=== PATIENT | female | born 1955 | race Caucasian/White ===

== ENCOUNTER 2016-10-18 11:19 | Outpatient (CLI) | payer MEDICARE, MEDICAID | END 2016-10-18 11:20 | disposition home or self-care (01) | DX: R07.89 Other chest pain (principal); I10 Essential (primary) hypertension ==

== ENCOUNTER 2016-10-18 14:17 | Outpatient (CLI) | payer MEDICARE, MEDICAID | END 2016-10-18 14:18 | disposition home or self-care (01) | DX: R07.89 Other chest pain (principal); I10 Essential (primary) hypertension; E11.9 Type 2 diabetes mellitus without complications ==

== ENCOUNTER 2017-05-16 09:54 | Outpatient (CLI) | payer MEDICARE, MEDICAID ==
--- NOTE | 2017-05-16 13:13 | XRAY Report ---
TWO-VIEW CHEST: 05/16/2017 CLINICAL INDICATION: Dyspnea on exertion. COMPARISON: 04/16/2012 FINDINGS: Frontal and lateral views of the chest demonstrate a normal cardiac silhouette. The lungs are clear. No effusion or pneumothorax is present. IMPRESSION: NORMAL CHEST, UNCHANGED. :9 JOB #: [id number] EXT JOB #:[id number]
== END 2017-05-16 09:55 | disposition home or self-care (01) ==
LOC: DI.S 09:54
PROVIDERS: ATTEND Nurse Practitioner Family
DX: R07.89 Other chest pain (principal); R06.00 Dyspnea, unspecified
CPT/HCPCS: 71020; 93005

== ENCOUNTER 2017-12-04 09:35 | Outpatient (CLI) | payer MEDICARE, MEDICAID ==
[2017-12-04 18:04] LABS: BUN - BLOOD UREA NITROGEN 15 mg/dL (6-20); CALCIUM 9.1 mg/dL (8.5-10.3); CARBON DIOXIDE - CO2 26 mmol/L (21-32); CHLORIDE 104 mmol/L (101-111); CREATININE 0.7 mg/dL (0.4-1.0); GFR - MDRD 85 (>89); GLUCOSE 100 mg/dL (70-100); SODIUM 137 mmol/L (135-145)
[2017-12-04 18:13] LABS: HGB - HEMOGLOBIN 13.2 g/dL (12.0-16.0); MEAN CORPUSCULAR HEMOGLOBIN 29.8 pg (27.0-31.0); MEAN CORPUSCULAR HGB CONC 33.1 g/dL (32.0-36.0); MEAN CORPUSCULAR VOLUME 90.1 fL (81.0-99.0); MEAN PLATELET VOLUME 8.3 fL (7.9-10.8); RED BLOOD COUNT 4.43 10^6/uL (4.20-5.40); RED CELL DISTRIBUTION WIDTH 13.5 % (12.0-15.0); WHITE BLOOD COUNT 10.1 x10^3/uL (4.8-10.8)
[2017-12-04 18:45] LABS: HB2 TOTAL 14.8 g/dL; HEMOGLOBIN A1C 0.74 g/dL; HEMOGLOBIN A1C % 6.7 % (4.6-6.2)
== END 2017-12-04 09:36 | disposition home or self-care (01) ==
LOC: LAB.F 09:35
PROVIDERS: ATTEND Nurse Practitioner Family
DX: R07.89 Other chest pain (principal); E11.9 Type 2 diabetes mellitus without complications; R06.09 Other forms of dyspnea; I34.0 Nonrheumatic mitral (valve) insufficiency
CPT/HCPCS: 36415; 80048; 82043; 83036; 83880; 84443

== ENCOUNTER 2018-10-19 08:17 | Outpatient (CLI) | payer MEDICARE, MEDICAID ==
[2018-10-19 10:47] LABS: BASOPHILS # (AUTO) 0.1 10^3/uL (0.0-0.1); BASOPHILS % (AUTO) 1.4 %; EOSINOPHILS # (AUTO) 0.3 10^3/uL (0.0-0.7); EOSINOPHILS % (AUTO) 3.9 %; HGB - HEMOGLOBIN 12.5 g/dL (12.0-16.0); LYMPHOCYTES # (AUTO) 2.9 10^3/uL (1.5-3.5); LYMPHOCYTES % (AUTO) 39.7 %; MEAN CORPUSCULAR HEMOGLOBIN 29.8 pg (27.0-31.0); MEAN CORPUSCULAR HGB CONC 33.2 g/dL (32.0-36.0); MEAN CORPUSCULAR VOLUME 89.8 fL (81.0-99.0); MEAN PLATELET VOLUME 8.1 fL (7.9-10.8); MONOCYTES # (AUTO) 0.5 10^3/uL (0.0-1.0); MONOCYTES % (AUTO) 6.3 %; NEUTROPHILS # (AUTO) 3.6 10^3/uL (1.5-6.6); NEUTROPHILS % (AUTO) 48.7 %; PLT - PLATELET COUNT 325 10^3/uL (130-450); RED BLOOD COUNT 4.19 10^6/uL (4.20-5.40); RED CELL DISTRIBUTION WIDTH 13.6 % (12.0-15.0); WHITE BLOOD COUNT 7.3 x10^3/uL (4.8-10.8)
[2018-10-19 10:53] LABS: HB2 TOTAL 13.9 g/dL; HEMOGLOBIN A1C 0.73 g/dL
[2018-10-19 10:54] LABS: ALBUMIN 3.9 g/dL (3.2-5.5); ALBUMIN/GLOBULIN RATIO 1.3 (1.0-2.2); ALKALINE PHOSPHATASE 80 IU/L (42-121); ALT ALANINE AMINOTRANSFERASE 24 IU/L (10-60); AST ASPARTATE AMINOTRANSFERASE 23 IU/L (10-42); BILIRUBIN,TOTAL 0.9 mg/dL (0.2-1.0); BUN - BLOOD UREA NITROGEN 20 mg/dL (6-20); CALCIUM 9.2 mg/dL (8.5-10.3); CARBON DIOXIDE - CO2 25 mmol/L (21-32); CHLORIDE 99 mmol/L (101-111); CHOL/HDL RATIO 3.8 (<4.4); CHOLESTEROL 195 mg/dL; CREATININE 0.8 mg/dL (0.4-1.0); GFR - MDRD 72 (>89); GLUCOSE 135 mg/dL (70-100); HDL CHOLESTEROL 51 mg/dL; LDL CHOLESTEROL,CALCULATED 100 mg/dL; SODIUM 135 mmol/L (135-145); TOTAL PROTEIN 6.9 g/dL (6.7-8.2); VLDL CHOLESTEROL 44 mg/dL
== END 2018-10-19 08:18 | disposition home or self-care (01) ==
LOC: LAB.F 08:17
PROVIDERS: ATTEND Registered Nurse
DX: Z00.00 Encounter for general adult medical examination without abnormal findings (principal); R35.8 Other polyuria
CPT/HCPCS: 36415; 80053; 80061; 83036; 83721; 84443; 85025

== ENCOUNTER 2018-11-02 12:27 | Outpatient (CLI) | payer MEDICARE, MEDICAID ==
--- NOTE | 2018-11-02 18:15 | Mammography Report ---
Reason: MAMMOGRAPHIC SCREENING FOR BREAST CANCER Procedure Date: 11/02/2018 Accession Number: [id number] / [id number] Procedure: CARLI - Screening Mammo w/David CPT Code: FULL RESULT: EXAM: Screening Mammo w/David DATE: 11/02/2018 12:53 PM CLINICAL HISTORY: Screening encounter. History of early menses. History of 10 years of hormone therapy. TECHNIQUE: Bilateral CC, laterally exaggerated CC, MLO views were obtained. COMPARISON: 04/19/2013. FINDINGS: The breasts demonstrate scattered fibroglandular densities bilaterally. No suspicious masses, clustered microcalcifications, or regions of architectural distortion are identified. IMPRESSION: Negative examination RECOMMENDATION: Routine annual screening unless otherwise clinically indicated. BIRADS CATEGORY 1: Negative STANDARD QUALIFYING STATEMENTS: 1. This examination was not reviewed with the aid of Computer-Aided Detection (CAD). 2. A negative or benign imaging report should not delay biopsy if clinically suspicious findings are present. Consider surgical consultation if warrented. More than 5% of cancers are not identified by imaging. 3. Dense breasts may obscure an underlying neoplasm. 4. This examination was reviewed with the aid of 3D breast imaging (tomosynthesis).
== END 2018-11-02 12:28 | disposition home or self-care (01) ==
LOC: DI 12:27
PROVIDERS: ATTEND Nurse Practitioner Family
DX: Z12.31 Encounter for screening mammogram for malignant neoplasm of breast (principal)
CPT/HCPCS: 77063; 77067

== ENCOUNTER 2018-11-16 09:52 | Outpatient (CLI) | payer MEDICARE, MEDICAID ==
--- NOTE | 2018-11-16 10:49 | XRAY Report ---
Reason: POST HEEL PAIN L X 6YEARS Procedure Date: 11/16/2018 Accession Number: [id number] / [id number] Procedure: XR - Calcaneus LT CPT Code: FULL RESULT: EXAM: LEFT CALCANEOUS RADIOGRAPHY EXAM DATE: 11/16/2018 10:07 AM. CLINICAL HISTORY: POST HEEL PAIN L X 6YEARS. COMPARISON: None. TECHNIQUE: 2 views. FINDINGS: Bones: No fractures or bone lesion identified. Mild inferior calcaneal spurring. Joints: The visualized joints demonstrate no subluxation. Soft Tissues: Normal. No soft tissue swelling. IMPRESSION: Mild inferior calcaneal spurring. RADIA
== END 2018-11-16 09:53 | disposition home or self-care (01) ==
LOC: DI 09:52
PROVIDERS: ATTEND Podiatrist
DX: M77.32 Calcaneal spur, left foot (principal)

== ENCOUNTER 2019-09-23 10:09 | Emergency (ER) | payer MEDICARE, MEDICAID ==
--- NOTE | 2019-09-23 12:16 | ED Physician Documentation ---
PD HPI OPHTHO - Stated complaint Stated Complaint: L EYE INJURY - Chief complaint Chief Complaint: Heent - History obtained from History obtained from: Patient - History of Present Illness Timing - onset: Enter time (1800), Last night Timing - duration: Minutes Timing - details: Abrupt onset, Now resolved, Waxing and waning Location: Left Quality / character: Other (no pain) Associated symptoms: Other (spots and flashes) Contributing factors: Wears glasses Similar symptoms before: Diagnosis (optic neuritis.) Recently seen: Not recently seen - Additional information Additional information: 64-year-old female with a history of hypertension and borderline diabetes has developed someBlack spots coming toward her face last night at about 6 PM. She noted that after that she had some bright white light in the peripheral of her vision. She states the light was flashes of bright white. She has not had any decrease in her vision she has not had any absence of vision. She has had something similar happened 20 years ago when she had loss of vision in her left eye for 6 hours. This was diagnosed as optic neuritis. She has not had symptoms since and she does usually see her eye doctor for refraction only. Review of Systems Constitutional: denies: Fever, Chills Eyes: reports: Other (black and light flashes). denies: Loss of vision, Decreased vision, Photophobia, Discharge, Irritation Ears: denies: Ear pain Nose: denies: Congestion Throat: denies: Sore throat Respiratory: denies: Cough GI: denies: Vomiting PD PAST MEDICAL HISTORY - Past Medical History Cardiovascular: Valve disorder Respiratory: Other Neuro: Peripheral neuropathy Endocrine/Autoimmune: Type 2 diabetes Musculoskeletal: Chronic back pain, Other - Past Surgical History Past Surgical History: Yes General: Cholecystectomy Ortho: Spine surgery /[facility] INSTITUTION: Hysterectomy - Present Medications Home Medications: Ambulatory Orders Medication Instructions Recorded Confirmed Omeprazole [PriLOSEC] 1 tab PO DAILY 05/21/16 10/29/18 estradioL [Estradiol] 2 tab PO DAILY 05/21/16 10/29/18 Cyanocobalamin (Vitamin B-12) 1,000 mcg PO DAILY 10/29/18 10/29/18 [Vitamin B-12] Tizanidine HCl 4 mg PO QPM 10/29/18 10/29/18 lisinopriL [Lisinopril] 2.5 mg PO DAILY 10/29/18 10/29/18 - Allergies Allergies/Adverse Reactions: Allergies Allergy/AdvReac Type Severity Reaction Status Date / Time tetanus and diphtheria Allergy Unknown Verified 09/23/19 10:17 toxoids nortriptyline AdvReac Severe suicidal Verified 09/23/19 10:17 pramipexole [From Mirapex] AdvReac Severe Nausea Verified 09/23/19 10:17 pregabalin [From Lyrica] AdvReac Severe Dizziness Verified 09/23/19 10:17 diltiazem AdvReac Intermediate insomina Verified 09/23/19 10:17 propranolol AdvReac Intermediate insomnia Verified 09/23/19 10:17 - Social History Does the pt smoke?: No Smoking Status: Former smoker Does the pt drink ETOH?: No Does the pt have substance abuse?: No - Immunizations Immunizations are current?: No Immunizations: TDAP >10years/unknown PD ED PE NORMAL - Vitals Vital signs reviewed: Yes (hypertensive mild ) - General General: Alert and oriented X 3, No acute distress, Well developed/nourished - HEENT HEENT: Atraumatic, PERRL, EOMI, Other (The fundiscopic exam is unremarkable. There is no scleral injection, no hyphema, no irregularity to iris and normal constriction. with the bedside ultrasound there is no evidence of retinal detachment. ) - Neck Neck: Supple, no meningeal sign, No bony TTP - Respiratory Respiratory: No respiratory distress - Extremities Extremities: No deformity, No edema, No calf tenderness / cord - Neuro Neuro: Alert and oriented X 3, [employer] 2-12 intact, No motor deficit, No sensory deficit, Normal speech Eye Opening: Spontaneous Motor: Obeys Commands Verbal: Oriented GCS Score: 15 - Psych Psych: Normal mood, Normal affect Results - Vitals Vitals: Vital Signs - 24 hr 09/23/19 09/23/19 10:13 12:41 Temperature 36 C L 36.6 C Heart Rate 92 82 Respiratory 18 17 Rate Blood Pressure 146/76 H 159/80 H O2 Saturation 96 97 Oxygen O2 Source Room air PD MEDICAL DECISION MAKING - ED course Complexity details: considered differential, d/w patient ED course: 64-year-old female with resolved symptoms of dark and white flashes in her vision does not appear to have evidence of retinal detachment and she does not have vision loss today. I have consulted Dr. Canas and he has graciously agreed to see the patient in clinic tomorrow. Departure - Departure Disposition: 01 Home, Self Care Clinical Impression: Vision abnormalities Condition: Stable Instructions: Flashes and Floaters Follow-Up: Goldie De La Fuente ARNP [Primary Care Provider] - Jero Canas MD [Provider Admit Priv/Credential] - Comments: Call Dr. Canas's office today and asked for an appointment to be seen tomorrow. Let them know you are a follow-up from the emergency department and the emergency department physician has talked to Dr. Canas about this case. Discharge Date/Time: 09/23/19 12:50
[2019-09-23 12:41] VITALS: BP 159/80
== END 2019-09-23 12:50 | disposition home or self-care (01) ==
LOC: ED 10:09
DX: H53.8 Other visual disturbances (principal); I10 Essential (primary) hypertension; E11.42 Type 2 diabetes mellitus with diabetic polyneuropathy; Z87.891 Personal history of nicotine dependence
CPT/HCPCS: 99282

== ENCOUNTER 2019-10-13 08:43 | Outpatient (CLI) | payer MEDICARE, MEDICAID ==
[2019-10-13 17:21] LABS: BASOPHILS # (AUTO) 0.1 10^3/uL (0.0-0.1); BASOPHILS % (AUTO) 0.8 %; EOSINOPHILS # (AUTO) 0.2 10^3/uL (0.0-0.7); EOSINOPHILS % (AUTO) 2.4 %; HGB - HEMOGLOBIN 13.5 g/dL (12.0-16.0); LYMPHOCYTES # (AUTO) 3.5 10^3/uL (1.5-3.5); LYMPHOCYTES % (AUTO) 44.4 %; MEAN CORPUSCULAR HEMOGLOBIN 29.6 pg (27.0-31.0); MEAN CORPUSCULAR HGB CONC 31.5 g/dL (32.0-36.0); MEAN CORPUSCULAR VOLUME 94.1 fL (81.0-99.0); MEAN PLATELET VOLUME 10.2 fL (7.9-10.8); MONOCYTES # (AUTO) 0.4 10^3/uL (0.0-1.0); MONOCYTES % (AUTO) 5.5 %; NEUTROPHILS # (AUTO) 3.7 10^3/uL (1.5-6.6); NEUTROPHILS % (AUTO) 46.8 %; PLT - PLATELET COUNT 356 10^3/uL (130-450); RED BLOOD COUNT 4.56 10^6/uL (4.20-5.40); RED CELL DISTRIBUTION WIDTH 13.2 % (12.0-15.0); WHITE BLOOD COUNT 7.9 x10^3/uL (4.8-10.8)
[2019-10-13 17:41] LABS: ALBUMIN 4.4 g/dL (3.2-5.5); ALBUMIN/GLOBULIN RATIO 1.5 (1.0-2.2); ALKALINE PHOSPHATASE 82 IU/L (42-121); ALT ALANINE AMINOTRANSFERASE 83 IU/L (10-60); AST ASPARTATE AMINOTRANSFERASE 53 IU/L (10-42); BILIRUBIN,TOTAL 0.8 mg/dL (0.2-1.0); BUN - BLOOD UREA NITROGEN 29 mg/dL (6-20); CALCIUM 9.5 mg/dL (8.5-10.3); CARBON DIOXIDE - CO2 26 mmol/L (21-32); CHLORIDE 101 mmol/L (101-111); CHOL/HDL RATIO 5.8 (<4.4); CHOLESTEROL 253 mg/dL; CREATININE 0.7 mg/dL (0.4-1.0); GFR - MDRD 84 (>89); GLUCOSE 138 mg/dL (70-100); HDL CHOLESTEROL 44 mg/dL; LDL CHOLESTEROL,CALCULATED 146 mg/dL; LDL/HDL RATIO 3.3 (<4.4); SODIUM 137 mmol/L (135-145); TOTAL PROTEIN 7.4 g/dL (6.7-8.2); VLDL CHOLESTEROL 63 mg/dL
[2019-10-13 18:13] LABS: HB2 TOTAL 13.8 g/dL; HEMOGLOBIN A1C 0.88 g/dL
== END 2019-10-13 08:44 | disposition home or self-care (01) ==
LOC: LAB.S 08:43
PROVIDERS: ATTEND Registered Nurse
DX: I10 Essential (primary) hypertension (principal); R73.9 Hyperglycemia, unspecified; F17.201 Nicotine dependence, unspecified, in remission; E66.9 Obesity, unspecified; Z68.34 Body mass index [BMI] 34.0-34.9, adult; K76.0 Fatty (change of) liver, not elsewhere classified
CPT/HCPCS: 36415; 80053; 80061; 83036; 83721; 84443; 85025

== ENCOUNTER 2020-02-08 09:56 | Outpatient (CLI) | payer MEDICARE, MEDICAID ==
[2020-02-08 15:40] LABS: CALCIUM 9.3 mg/dL (8.5-10.3); CREATININE 0.8 mg/dL (0.4-1.0)
[2020-02-08 15:57] LABS: CREATININE,URINE 73.6 mg/dL
[2020-02-08 16:00] LABS: MICROALBUMIN,URINE < 0.2 mg/dL (0-300.0)
[2020-02-08 16:10] LABS: HB2 TOTAL 13.4 g/dL; HEMOGLOBIN A1C 0.75 g/dL; HEMOGLOBIN A1C % 7.3 % (4.6-6.2)
== END 2020-02-08 09:57 | disposition home or self-care (01) ==
LOC: LAB.S 09:56
PROVIDERS: ATTEND Registered Nurse
DX: E11.65 Type 2 diabetes mellitus with hyperglycemia (principal)
CPT/HCPCS: 36415; 80048; 82043; 82570; 83036

== ENCOUNTER 2020-11-27 08:27 | Outpatient (CLI) | payer MEDICARE, MEDICAID ==
[2020-11-27 14:12] LABS: BASOPHILS # (AUTO) 0.1 10^3/uL (0.0-0.1); BASOPHILS % (AUTO) 0.9 %; EOSINOPHILS # (AUTO) 0.2 10^3/uL (0.0-0.7); EOSINOPHILS % (AUTO) 1.9 %; HCT - HEMATOCRIT 38.3 % (37.0-47.0); HGB - HEMOGLOBIN 11.9 g/dL (12.0-16.0); LYMPHOCYTES # (AUTO) 3.3 10^3/uL (1.5-3.5); LYMPHOCYTES % (AUTO) 40.6 %; MEAN CORPUSCULAR HEMOGLOBIN 29.6 pg (27.0-31.0); MEAN CORPUSCULAR HGB CONC 31.1 g/dL (32.0-36.0); MEAN CORPUSCULAR VOLUME 95.3 fL (81.0-99.0); MEAN PLATELET VOLUME 9.7 fL (7.9-10.8); MONOCYTES # (AUTO) 0.5 10^3/uL (0.0-1.0); MONOCYTES % (AUTO) 5.9 %; NEUTROPHILS # (AUTO) 4.1 10^3/uL (1.5-6.6); NEUTROPHILS % (AUTO) 50.5 %; PLT - PLATELET COUNT 400 10^3/uL (130-450); RED BLOOD COUNT 4.02 10^6/uL (4.20-5.40); RED CELL DISTRIBUTION WIDTH 13.7 % (12.0-15.0); WHITE BLOOD COUNT 8.1 x10^3/uL (4.8-10.8)
[2020-11-27 14:34] LABS: ALBUMIN 4.2 g/dL (3.2-5.5); ALBUMIN/GLOBULIN RATIO 1.4 (1.0-2.2); ALKALINE PHOSPHATASE 76 IU/L (42-121); ALT ALANINE AMINOTRANSFERASE 20 IU/L (10-60); AST ASPARTATE AMINOTRANSFERASE 17 IU/L (10-42); BILIRUBIN,TOTAL 0.9 mg/dL (0.2-1.0); BUN - BLOOD UREA NITROGEN 23 mg/dL (6-20); CALCIUM 9.4 mg/dL (8.5-10.3); CARBON DIOXIDE - CO2 25 mmol/L (21-32); CHLORIDE 105 mmol/L (101-111); CHOL/HDL RATIO 3.9 (<4.4); CHOLESTEROL 191 mg/dL; CREATININE 0.7 mg/dL (0.4-1.0); GFR - MDRD 84 (>89); GLUCOSE 122 mg/dL (70-100); HDL CHOLESTEROL 49 mg/dL; LDL CHOLESTEROL,CALCULATED 102 mg/dL; LDL/HDL RATIO 2.1 (<4.4); POTASSIUM 5.1 mmol/L (3.5-5.0); SODIUM 139 mmol/L (135-145); TOTAL PROTEIN 7.1 g/dL (6.7-8.2); TRIGLYCERIDES 201 mg/dL; VLDL CHOLESTEROL 40 mg/dL
[2020-11-27 14:40] LABS: THYROID STIMULATING HORMONE 1.19 uIU/mL (0.34-5.60)
[2020-11-27 20:30] LABS: ESTIMATED AVERAGE GLUCOSE 154 mg/dL (70-100)
== END 2020-11-27 08:28 | disposition home or self-care (01) ==
LOC: LAB.S 08:27
PROVIDERS: ATTEND Registered Nurse
DX: E11.9 Type 2 diabetes mellitus without complications (principal); I10 Essential (primary) hypertension; E78.5 Hyperlipidemia, unspecified
CPT/HCPCS: 36415; 80053; 80061; 83036; 83721; 84443; 85025

== ENCOUNTER 2021-01-22 15:00 | Outpatient (CLI) | payer MEDICARE, MEDICAID | END 2021-01-22 23:59 | disposition home or self-care (01) | LOC: COV 15:00 | PROVIDERS: ATTEND Ophthalmology | DX: Z01.812 Encounter for preprocedural laboratory examination (principal); H25.812 Combined forms of age-related cataract, left eye; E11.9 Type 2 diabetes mellitus without complications; Z20.822 Contact with and (suspected) exposure to COVID-19 ==

== ENCOUNTER 2021-01-25 06:25 | Day surgery (SDC) | payer MEDICARE, MEDICAID ==
[~2021-01-25 06:25] MED LIST: CYCLOPENTOLATE 1% OPHTH DROPS 2 ML ONE; KETOROLAC 0.45% OPHTH DROPS ONE; PHENYLEPHRINE 2.5% OPHTH 2 ML DROPS ONE; PROPARACAINE 0.5% OPHTH DROPS 15 ML ONE
[2021-01-25] MEDS ORDERED: LACTATED RINGERS 500 ML IV ONE ×2 (06:45→07:40)
[2021-01-25] MEDS ORDERED: TRIAMCIN/MOXIFLOX OPHTHALMIC 0.6 ML VIAL IO ONE ×3 (07:11→07:34)
[2021-01-25] MEDS ORDERED: TIMOLOL 0.5% OPHTH DROPS ONE (07:11)
[2021-01-25] MEDS ORDERED: MIDAZOLAM 2 MG/2 ML VIAL ONE (07:11)
[2021-01-25] MEDS ORDERED: BRIMONIDINE 0.2% OPHTH DROPS 5 ML ONE (07:11)
[2021-01-25] MEDS ORDERED: EPINEPHrine 1 MG/ML AMP ONE (07:11)
[2021-01-25] MEDS ORDERED: BSS/LIDOCAINE/EPINEPHRINE 1 ML SYRINGE ONE (07:12)
[2021-01-25] MEDS ORDERED: VANCOMYCIN OPHTHALMI 8MG/0.8ML 8 MG/0.8 ML SYRINGE IO ONE ×3 (07:12→07:34)
--- NOTE | 2021-01-25 07:14 | ANESTHESIA ---
Pre-Anesthesia VS, & Labs - Diagnosis left eye cataract - Procedure Left CATIOL Vital Signs: Temp Pulse Resp BP Pulse Ox 36.5 C 78 16 155/78 H 98 01/25/21 06:48 01/25/21 06:48 01/25/21 06:48 01/25/21 06:48 01/25/21 06:48 Height: 5 ft 2 in Weight (kg): 81.5 kg Body Mass Index: 32.8 BMI Classification: Obese - NPO >8 hours - Is Patient ?: No - Lab Results Current Lab Results: Laboratory Tests 01/25/21 06:56: POC Whole Bld Glucose 128 H Lab results reviewed: Yes Home Medications and Allergies Home Medications: Ambulatory Orders metFORMIN [Glucophage] 500 mg PO BIDWM 01/24/21 Omeprazole [PriLOSEC] 1 tab PO DAILY 05/21/16 estradioL [Estradiol] 2 tab PO DAILY 05/21/16 Tizanidine HCl 4 mg PO QPM 10/29/18 lisinopriL [Lisinopril] 2.5 mg PO DAILY 10/29/18 metFORMIN [Glucophage] 500 mg PO BIDWM 01/24/21 Allergies/Adverse Reactions: Allergies Allergy/AdvReac Type Severity Reaction Status Date / Time tetanus and diphtheria Allergy Unknown Verified 09/23/19 10:17 toxoids nortriptyline AdvReac Severe suicidal Verified 09/23/19 10:17 pramipexole [From Mirapex] AdvReac Severe Nausea Verified 09/23/19 10:17 pregabalin [From Lyrica] AdvReac Severe Dizziness Verified 09/23/19 10:17 diltiazem AdvReac Intermediate insomina Verified 09/23/19 10:17 propranolol AdvReac Intermediate insomnia Verified 09/23/19 10:17 Anes History & Medical History - Anesthetic History Anesthesia Complications: reports: No previous complications Family history of Anesthesia Complications: Denies Family history of Malignant Hyperthermia: Denies - Medical History Cardiovascular: reports: Valve disorder ("some type of regurgitation in 2 valves" per patient. Denies SOB or any chest pains. 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.) Pulmonary: reports: Other Gastrointestinal: reports: None Urinary: reports: None Neuro: reports: Peripheral neuropathy Musculoskeletal: reports: Chronic back pain, Other Endocrine/Autoimmune: reports: Type 2 diabetes Smoking Status: Former smoker - Surgical History General: reports: Cholecystectomy Gynecologic: reports: Hysterectomy Orthopedic: reports: Spine surgery Exam General: Alert, Oriented x3, Cooperative, No acute distress Dental: WNL Mouth Openin Fingerbreadth Neck Mobility: Normal Mallampati classification: II Respiratory: Lungs clear, Normal breath sounds, No respiratory distress, No accessory muscle use Cardiovascular: Other (murmur) Plan Anesthesia Type: MAC Consent for Procedure(s) Verified and Reviewed: Yes Code Status: Attempt Resuscitation ASA classification: 3-Severe systemic disease Is this case an emergency?: No
[2021-01-25] MEDS ORDERED: MORPHINE 2 MG/ML CARPUJECT IVP PRN (07:15)
[2021-01-25] MEDS ORDERED: ePHEDrine 50 MG/ML VIAL IVP PRN (07:15)
[2021-01-25] MEDS ORDERED: ONDANSETRON 4 MG/2 ML VIAL IVP PRN (07:15)
[2021-01-25] MEDS ORDERED: METOCLOPRAMIDE 10 MG/2 ML VIAL IVP PRN (07:15)
[2021-01-25] MEDS ORDERED: NALOXONE 0.4 MG/ML VIAL IVP PRN (07:15)
[2021-01-25] MEDS ORDERED: HYDROmorphone 0.5 MG/0.5 ML SYRINGE IVP PRN (07:15)
[2021-01-25] MEDS ORDERED: ATROPINE ABBOJECT 1 MG/10 ML SYRINGE IVP PRN (07:15)
[2021-01-25] MEDS ORDERED: fentaNYL 100 MCG/2 ML VIAL IVP PRN (07:15)
[2021-01-25] MEDS ORDERED: EPINEPHrine 1 MG/ML AMP IR ONE ×2 (07:20→07:33)
[2021-01-25] MEDS ORDERED: CHONDR SULF/HYALURONATE SYRINGE IO ONE ×2 (07:20→07:33)
[2021-01-25] MEDS ORDERED: TIMOLOL 0.5% OPHTH DROPS OPTH ONE ×2 (07:20→07:33)
[2021-01-25] MEDS ORDERED: BRIMONIDINE 0.2% OPHTH DROPS 5 ML OPTH ONE ×2 (07:20→07:32)
[2021-01-25] MEDS ORDERED: BSS/LIDOCAINE/EPINEPHRINE 1 ML SYRINGE IO ONE ×2 (07:21→07:34)
[2021-01-25] MEDS ORDERED: PROPARACAINE 0.5% OPHTH DROPS 15 ML EACHEYE ONE ×2 (07:21→07:34)
[2021-01-25 07:43] VITALS: BP 152/81
[2021-01-25] MEDS ORDERED: LACTATED RINGERS 1,000 ML IV SCH (08:00)
--- NOTE | 2021-01-25 08:04 | ANESTHESIA POST OP EVALUATION ---
Anesthesia Post Eval - Post Anesthesia Eval Vitals: Last Vital Signs Temp 36.8 C 01/25/21 07:42 Pulse 79 01/25/21 07:42 Resp 20 01/25/21 07:42 BP 152/81 H 01/25/21 07:42 Pulse Ox 98 01/25/21 07:42 CV Function Including HR & BP: Stable Pain Control: Satisfactory Nausea & Vomiting: Negative Mental Status: Baseline Respiratory Status: Airway Patent Hydration Status: Satisfactory Anesthesia Complications: None
--- NOTE | 2021-01-25 12:03 | OPERATIVE REPORT ---
Operative Report - Other Other Information/Narrative: Date of Surgery: 01/25/21 Preop Dx: Visually significant cataract left eye. This was the first cataract surgery. Postop Dx: Same Procedure: Phacoemulsification with posterior chamber intraocular lens implant left eye Surgeon: Dr. Jero Canas Anesthesia: Monitored anesthesia care Complications: None Operative Indications: This is a 65-year-old F with progressive vision loss in the left eye due to 2+ nuclear sclerotic and 2-3+ posterior subcapsular cataract. Best corrected visual acuity was 20/40 with glare to 20/400 vision in the left eye. Indications for surgery were: - Overall decrease in vision - Difficulty seeing words on a computer screen - Difficulty reading - Difficulty seeing words, closed captions, or game scores on TV - Difficulty driving at night because of headlights from other vehicles - Difficulty with glare or bright lights in any situation The patient was consented at length concerning the risks and benefits of cataract surgery after which the patient expressed a desire to proceed with surgery. Operative Procedure: The patient was taken into OR#3 and placed under monitored anesthesia care. A surgical time-out was conducted confirming correct patient, correct procedure, and correct surgical site. The patient was given topical anesthesia and then prepped and draped in the usual sterile fashion. The eye was entered at the 6 and 3 oclock positions. Intracameral Shugarcaine was injected into the anterior chamber followed by a dispersive viscoelastic. A continuous-tear curvilinear capsulorhexis was performed. The nucleus was hydrodissected and phacoemulsified. The cortex was evacuated using automated infusion and aspiration. A cohesive viscoelastic was injected into the capsular bag and a 22.0 diopter intraocular lens was inserted into the bag. Infusion and aspiration were used to evacuate the viscoelastic materials from the eye. The wounds were hydrated and the eye inflated to physiologic pressure using balanced salt solution. Approximately 0.25ml of a mixture of triamcinolone and moxifloxacin was injected trans-sclerally into the vitreous in the inferotemporal quadrant using a 30 gauge cannula. An additional 0.55ml of a mixture of triamcinolone, moxifloxacin, and vancomycin was injected subconjunctivally in the superior quadrant for infection and inflammation prophylaxis. Wound integrity was checked with Weck-Aleida sponges. The patient was taken from the operating room in good condition and given post-op instructions.
== END 2021-01-25 06:26 | disposition home or self-care (01) ==
LOC: SDS 06:25
PROVIDERS: ATTEND Ophthalmology
DX: E11.36 Type 2 diabetes mellitus with diabetic cataract (principal); H25.812 Combined forms of age-related cataract, left eye; I10 Essential (primary) hypertension; E11.42 Type 2 diabetes mellitus with diabetic polyneuropathy; I38 Endocarditis, valve unspecified; E66.9 Obesity, unspecified; Z68.32 Body mass index [BMI] 32.0-32.9, adult; Z79.84 Long term (current) use of oral hypoglycemic drugs; Z79.899 Other long term (current) drug therapy; Z87.891 Personal history of nicotine dependence
CPT/HCPCS: 66984; A9270; J3490; J7120

== ENCOUNTER 2021-04-20 08:00 | Outpatient (CLI) | payer MEDICARE, MEDICAID ==
[2021-04-20 14:52] LABS: BASOPHILS # (AUTO) 0.1 10^3/uL (0.0-0.1); BASOPHILS % (AUTO) 0.8 %; EOSINOPHILS # (AUTO) 0.2 10^3/uL (0.0-0.7); EOSINOPHILS % (AUTO) 1.8 %; HCT - HEMATOCRIT 39.3 % (37.0-47.0); HGB - HEMOGLOBIN 12.7 g/dL (12.0-16.0); LYMPHOCYTES # (AUTO) 3.6 10^3/uL (1.5-3.5); LYMPHOCYTES % (AUTO) 39.4 %; MEAN CORPUSCULAR HEMOGLOBIN 30.5 pg (27.0-31.0); MEAN CORPUSCULAR HGB CONC 32.3 g/dL (32.0-36.0); MEAN CORPUSCULAR VOLUME 94.2 fL (81.0-99.0); MEAN PLATELET VOLUME 9.7 fL (7.9-10.8); MONOCYTES # (AUTO) 0.5 10^3/uL (0.0-1.0); NEUTROPHILS # (AUTO) 4.9 10^3/uL (1.5-6.6); NEUTROPHILS % (AUTO) 52.8 %; PLT - PLATELET COUNT 421 10^3/uL (130-450); RED BLOOD COUNT 4.17 10^6/uL (4.20-5.40); RED CELL DISTRIBUTION WIDTH 13.5 % (12.0-15.0); WHITE BLOOD COUNT 9.2 x10^3/uL (4.8-10.8)
[2021-04-20 15:41] LABS: ALBUMIN 4.3 g/dL (3.2-5.5); ALBUMIN/GLOBULIN RATIO 1.5 (1.0-2.2); BILIRUBIN,TOTAL 1.1 mg/dL (0.2-1.0); CALCIUM 9.3 mg/dL (8.5-10.3); CREATININE 0.7 mg/dL (0.4-1.0); POTASSIUM 4.1 mmol/L (3.5-5.0); TOTAL PROTEIN 7.2 g/dL (6.7-8.2)
[2021-04-20 20:48] LABS: BACTERIAL VAGINOSIS DNA NEGATIVE (NEGATIVE); CANDIDA GLABRATA DNA NEGATIVE (NEGATIVE); CANDIDA GROUP DNA NEGATIVE (NEGATIVE); CANDIDA KRUSEI DNA NEGATIVE (NEGATIVE); TRICHOMONAS VAGINALIS DNA NEGATIVE (NEGATIVE)
== END 2021-04-20 23:59 | disposition home or self-care (01) ==
LOC: LAB.S 08:00
PROVIDERS: ATTEND Nurse Practitioner
DX: B37.3 Candidiasis of vulva and vagina (principal)
CPT/HCPCS: 36415; 80053; 85025; 87661; 87801

== ENCOUNTER 2021-05-24 08:29 | Outpatient (CLI) | payer MEDICARE, MEDICAID ==
[2021-05-24 15:01] LABS: CALCIUM 9.7 mg/dL (8.5-10.3); CREATININE 0.7 mg/dL (0.4-1.0); POTASSIUM 4.6 mmol/L (3.5-5.0)
[2021-05-24 15:21] LABS: CREATININE,URINE 41.2 mg/dL
[2021-05-24 15:48] LABS: MICROALBUMIN,URINE < 0.2 mg/dL (0-300.0)
[2021-05-24 21:20] LABS: ESTIMATED AVERAGE GLUCOSE 166 mg/dL (70-100); HEMOGLOBIN A1c% 7.4 % (4.27-6.07)
== END 2021-05-24 08:30 | disposition home or self-care (01) ==
LOC: LAB.S 08:29
PROVIDERS: ATTEND Registered Nurse
DX: E11.9 Type 2 diabetes mellitus without complications (principal)
CPT/HCPCS: 36415; 80048; 82043; 82570; 83036

== ENCOUNTER 2022-06-28 08:35 | Outpatient (CLI) | payer MEDICARE, MEDICAID ==
[2022-06-28 14:56] LABS: BASOPHILS % (AUTO) 0.8 %; EOSINOPHILS % (AUTO) 2.1 %; HCT - HEMATOCRIT 39.3 % (37.0-47.0); HGB - HEMOGLOBIN 12.4 g/dL (12.0-16.0); LYMPHOCYTES % (AUTO) 47.6 %; MEAN CORPUSCULAR HEMOGLOBIN 29.7 pg (27.0-31.0); MEAN CORPUSCULAR HGB CONC 31.6 g/dL (32.0-36.0); MEAN CORPUSCULAR VOLUME 94.2 fL (81.0-99.0); MEAN PLATELET VOLUME 9.5 fL (7.9-10.8); MONOCYTES % (AUTO) 5.5 %; NEUTROPHILS % (AUTO) 43.9 %; PLT - PLATELET COUNT 410 10^3/uL (130-450); RED BLOOD COUNT 4.17 10^6/uL (4.20-5.40); RED CELL DISTRIBUTION WIDTH 13.4 % (12.0-15.0)
[2022-06-28 14:59] LABS: ABNORMAL LYMPHS % (MANUAL) 0 %
[2022-06-28 15:25] LABS: BAND NEUTROPHILS % (MANUAL) 1 %; BASOPHILS # (MANUAL) 0.2 10^3/uL (0-0.1); BASOPHILS % (MANUAL) 2 %; DIFFERENTIAL COMMENT MANUAL DIFFERENTIAL; EOSINOPHILS # (MANUAL) 0.5 10^3/uL (0-0.7); LYMPHOCYTES # (MANUAL) 3.3 10^3/uL (1.5-3.5); LYMPHOCYTES % (MANUAL) 37 %; MONOCYTES # (MANUAL) 0.3 10^3/uL (0.0-1.0); NEUTROPHILS # (MANUAL) 4.7 10^3/uL (1.5-6.6); PLATELET ESTIMATE, MANUAL NORMAL (130-450,000) (NORMAL); PLATELET MORPHOLOGY NORMAL APPEARANCE (NORMAL); RBC MORPHOLOGY (MULTIPLE) NORMAL APPEARANCE (NORMAL); WBC MORPHOLOGY (MULTIPLE) 1+ SMUDGE CELLS (NORMAL)
[2022-06-28 15:39] LABS: ALBUMIN 4.4 g/dL (3.2-5.5); ALBUMIN/GLOBULIN RATIO 1.3 (1.0-2.2); ALKALINE PHOSPHATASE 87 IU/L (42-121); ALT ALANINE AMINOTRANSFERASE 17 IU/L (10-60); AST ASPARTATE AMINOTRANSFERASE 16 IU/L (10-42); BUN - BLOOD UREA NITROGEN 23 mg/dL (6-20); CALCIUM 9.5 mg/dL (8.5-10.3); CARBON DIOXIDE - CO2 24 mmol/L (21-32); CHLORIDE 100 mmol/L (101-111); CHOL/HDL RATIO 4.4 (<4.4); CHOLESTEROL 216 mg/dL; CREATININE 0.7 mg/dL (0.4-1.0); GFR - MDRD 84 (>89); GLUCOSE 111 mg/dL (70-100); HDL CHOLESTEROL 49 mg/dL; LDL CHOLESTEROL,CALCULATED 120 mg/dL; LDL/HDL RATIO 2.4 (<4.4); POTASSIUM 4.8 mmol/L (3.5-5.0); SODIUM 135 mmol/L (135-145); TOTAL PROTEIN 7.7 g/dL (6.7-8.2); TRIGLYCERIDES 237 mg/dL; VLDL CHOLESTEROL 47 mg/dL
[2022-06-28 15:42] LABS: THYROID STIMULATING HORMONE 1.11 uIU/mL (0.34-5.60)
[2022-06-28 20:16] LABS: ESTIMATED AVERAGE GLUCOSE 140 mg/dL (70-100); HEMOGLOBIN A1c% 6.5 % (4.27-6.07)
== END 2022-06-28 08:36 | disposition home or self-care (01) ==
LOC: LAB.S 08:35
PROVIDERS: ATTEND Registered Nurse
DX: I10 Essential (primary) hypertension (principal); E78.5 Hyperlipidemia, unspecified; E11.8 Type 2 diabetes mellitus with unspecified complications
CPT/HCPCS: 36415; 80053; 80061; 83036; 83721; 84443; 85025

== ENCOUNTER 2022-08-13 10:24 | Outpatient (CLI) | payer MEDICARE, MEDICAID ==
[2022-08-13 14:47] LABS: BASOPHILS # (AUTO) 0.1 10^3/uL (0.0-0.1); BASOPHILS % (AUTO) 0.9 %; EOSINOPHILS # (AUTO) 0.2 10^3/uL (0.0-0.7); HCT - HEMATOCRIT 39.2 % (37.0-47.0); HGB - HEMOGLOBIN 12.3 g/dL (12.0-16.0); LYMPHOCYTES # (AUTO) 4.6 10^3/uL (1.5-3.5); LYMPHOCYTES % (AUTO) 40.6 %; MEAN CORPUSCULAR HEMOGLOBIN 29.8 pg (27.0-31.0); MEAN CORPUSCULAR HGB CONC 31.4 g/dL (32.0-36.0); MEAN CORPUSCULAR VOLUME 94.9 fL (81.0-99.0); MEAN PLATELET VOLUME 9.7 fL (7.9-10.8); MONOCYTES # (AUTO) 0.5 10^3/uL (0.0-1.0); MONOCYTES % (AUTO) 4.7 %; NEUTROPHILS # (AUTO) 5.8 10^3/uL (1.5-6.6); NEUTROPHILS % (AUTO) 51.5 %; PLT - PLATELET COUNT 402 10^3/uL (130-450); RED BLOOD COUNT 4.13 10^6/uL (4.20-5.40); RED CELL DISTRIBUTION WIDTH 13.5 % (12.0-15.0); WHITE BLOOD COUNT 11.2 x10^3/uL (4.8-10.8)
[2022-08-13 15:11] LABS: SLIDE REVIEW? Indicated
[2022-08-13 15:55] LABS: DIFFERENTIAL COMMENT MANUAL=AUTO DIFF; PLATELET ESTIMATE, MANUAL NORMAL (130-450,000) (NORMAL); PLATELET MORPHOLOGY NORMAL APPEARANCE (NORMAL); RBC MORPHOLOGY (MULTIPLE) NORMAL APPEARANCE (NORMAL)
== END 2022-08-13 10:25 | disposition home or self-care (01) ==
LOC: LAB.S 10:24
PROVIDERS: ATTEND Registered Nurse
DX: R79.9 Abnormal finding of blood chemistry, unspecified (principal)
CPT/HCPCS: 36415; 85025

== ENCOUNTER 2022-09-17 10:59 | Outpatient (CLI) | payer MEDICARE, MEDICAID ==
--- NOTE | 2022-09-17 12:37 | CT Report ---
PROCEDURE: Low Dose Lung Cancer Screen INDICATIONS: SMOKER TECHNIQUE: Noncontrast low-dose axial images were acquired from the pulmonary apices to the posterior costophren ic angles. Multiplanar MIP reformats were then reconstructed. For radiation dose reduction, the follo wing was used: automated exposure control, adjustment of mA and/or kV according to patient size. COMPARISON: None. FINDINGS: Image quality: Excellent. Lungs and pleura: 3 x 5 mm fissural nodule, left major fissure, image 153/4. This is likely a benign fissural lymph node. No other pulmonary nodules. No acute infiltrates. Mediastinum: Heart size is normal. No pericardial effusion. No mediastinal adenopathy by size crit eria. Thoracic aorta and central pulmonary arteries are normal in size. Esophagus is normal in agus boris. No hiatal hernia. Bones and chest wall: No suspicious bony lesions. No vertebral body compression fractures. No axil phil or supraclavicular adenopathy by size criteria. The thyroid is normal in size and there are no incidental findings. Abdomen: Visualized upper abdomen solid organs and bowel loops appear normal in the absence of contr ast. IMPRESSION: Lung RAD: 3 - Probably Benign. Probably benign finding(s) - short term follow up suggested; includes nodules with a low likelihood of becoming a clinically active cancer. Recommendation: 6 month LDCT. Non-Lung Significant Findings: None CLINICAL RECOMMENDATION STATEMENTS: In patients <35 years with an ITN detected on CT, MRI, or extrathyroidal ultrasound, the Committee re commends further evaluation with dedicated thyroid ultrasound if the nodule is "e1 cm and has no susp icious imaging features, and if the patient has normal life expectancy. In patients "e35 years with an ITN detected on CT, MRI, or extrathyroidal ultrasound, the Committee r ecommends further evaluation with dedicated thyroid ultrasound if the nodule is "e1.5 cm and has no s uspicious imaging features, and if the patient has normal life expectancy. (ACR, 2014) Reviewed by: Sandeep Rivera MD on 09/17/2022 12:36 PM PST Approved by: Sandeep Rivera MD on 09/17/2022 12:36 PM PST Station ID: [id number] Lung-Rad Lung-Recommendation [id number]
== END 2022-09-17 11:00 | disposition home or self-care (01) ==
LOC: DI 10:59
PROVIDERS: ATTEND Registered Nurse
DX: Z12.2 Encounter for screening for malignant neoplasm of respiratory organs (principal); R91.1 Solitary pulmonary nodule; F17.210 Nicotine dependence, cigarettes, uncomplicated

== ENCOUNTER 2022-10-01 11:54 | Outpatient (CLI) | payer MEDICARE, MEDICAID | END 2022-10-01 11:55 | disposition home or self-care (01) | LOC: LAB.S 11:54 | PROVIDERS: ATTEND Registered Nurse | DX: R53.82 Chronic fatigue, unspecified (principal) | CPT/HCPCS: 36415; 85651; 86140 ==

== ENCOUNTER 2023-02-20 08:34 | Outpatient (CLI) | payer MEDICARE, MEDICAID ==
[2023-02-20 15:11] LABS: CALCIUM 9.3 mg/dL (8.5-10.3); CREATININE 0.8 mg/dL (0.4-1.0)
[2023-02-20 20:43] LABS: ESTIMATED AVERAGE GLUCOSE 177 mg/dL (70-100); HEMOGLOBIN A1c% 7.8 % (4.27-6.07)
== END 2023-02-20 08:35 | disposition home or self-care (01) ==
LOC: LAB.S 08:34
PROVIDERS: ATTEND Registered Nurse
DX: E11.8 Type 2 diabetes mellitus with unspecified complications (principal)
CPT/HCPCS: 36415; 80048; 83036

== ENCOUNTER 2023-05-13 08:38 | Outpatient (CLI) | payer MEDICARE, MEDICAID ==
[2023-05-13 15:29] LABS: BASOPHILS % (AUTO) 1.2 %; EOSINOPHILS % (AUTO) 3.3 %; HCT - HEMATOCRIT 38.8 % (37.0-47.0); LYMPHOCYTES % (AUTO) 44.6 %; MEAN CORPUSCULAR HEMOGLOBIN 28.8 pg (27.0-31.0); MEAN CORPUSCULAR HGB CONC 30.9 g/dL (32.0-36.0); MEAN CORPUSCULAR VOLUME 93.3 fL (81.0-99.0); MEAN PLATELET VOLUME 9.9 fL (7.9-10.8); MONOCYTES % (AUTO) 6.1 %; NEUTROPHILS % (AUTO) 44.4 %; PLT - PLATELET COUNT 417 10^3/uL (130-450); RED BLOOD COUNT 4.16 10^6/uL (4.20-5.40); RED CELL DISTRIBUTION WIDTH 13.8 % (12.0-15.0); WHITE BLOOD COUNT 9.3 x10^3/uL (4.8-10.8)
[2023-05-13 15:53] LABS: ABNORMAL LYMPHS % (MANUAL) 0 %; BAND NEUTROPHILS % (MANUAL) 0 %
[2023-05-13 15:55] LABS: ALBUMIN 4.5 g/dL (3.2-5.5); ALBUMIN/GLOBULIN RATIO 1.8 (1.0-2.2); BILIRUBIN,TOTAL 0.6 mg/dL (0.2-1.0); CALCIUM 9.7 mg/dL (8.5-10.3); CREATININE 0.7 mg/dL (0.6-1.3); POTASSIUM 5.4 mmol/L (3.5-4.5)
[2023-05-13 17:07] LABS: BASOPHILS # (MANUAL) 0.2 10^3/uL (0-0.1); BASOPHILS % (MANUAL) 2 %; EOSINOPHILS # (MANUAL) 0.6 10^3/uL (0-0.7); LYMPHOCYTES # (MANUAL) 3.7 10^3/uL (1.5-3.5); LYMPHOCYTES % (MANUAL) 26 %; MONOCYTES # (MANUAL) 0.7 10^3/uL (0.0-1.0); NEUTROPHILS # (MANUAL) 4.2 10^3/uL (1.5-6.6); PLATELET ESTIMATE, MANUAL NORMAL (130-450,000) (NORMAL); PLATELET MORPHOLOGY NORMAL APPEARANCE (NORMAL); RBC MORPHOLOGY (MULTIPLE) NORMAL APPEARANCE (NORMAL); REACTIVE LYMPHS % (MANUAL) 14 %
[2023-05-13 17:08] LABS: DIFFERENTIAL COMMENT MANUAL DIFFERENTIAL
--- NOTE | 2023-05-14 13:24 | Mammography Report ---
BILATERAL DIGITAL SCREENING MAMMOGRAM 3D/2D: 05/13/2023 CLINICAL: Routine screening. Comparison is made to exams dated: 11/02/2018 mammogram, 04/19/2013 mammogram, and 04/07/2007 mammogram - [facility]. Both breasts are almost entirely fatty (category a/<25% glandular tissue). There is a benign calcification in the right breast. There also is a stable benign focal asymmetry i n the left breast. No significant masses, calcifications, or other findings are seen in either breast. There has been no significant interval change. IMPRESSION: BENIGN There is no mammographic evidence of malignancy. A 1 year screening mammogram is recommended. Based on the Tyrer Cuzick model (a risk assessment model) the patients lifetime risk is 2.8% and her 10 year risk is 1.4%. According to the ACR, ACS, and NCCN guidelines, an annual breast MRI exam davion g with mammogram is recommended if the patients lifetime risk is 20% or greater. This exam was interpreted at Station ID: [id number]. NOTE: For mammograms, a report in lay terms will be sent to the patient. Approximately 15% of breast malignancies will not be visualized mammographically. In the management of a palpable breast mass, a negative mammogram must not discourage biopsy of a clinically suspicious lesion. Electronically Signed By: Steven cid/kumar:05/13/2023 12:00:25 letter sent: No_Letter ACR BI-RADS Category 2: Benign Finding(s) 3342F PARENCHYMAL PATTERN: (F) - The breast(s) demonstrate(s) diffuse fatty replacement. BI-RADS CATEGORY: (2) - 2 Mammogram [id number] 1 year screening LATERALITY: (B)
== END 2023-05-13 08:39 | disposition home or self-care (01) ==
LOC: DI.S 08:38
PROVIDERS: ATTEND Nurse Practitioner
DX: Z12.31 Encounter for screening mammogram for malignant neoplasm of breast (principal); I10 Essential (primary) hypertension
CPT/HCPCS: 36415; 80053; 85025

== ENCOUNTER 2023-06-12 09:25 | Outpatient (CLI) | payer MEDICARE, MEDICAID ==
--- NOTE | 2023-06-12 10:23 | DEXA Report ---
PROCEDURE: Dexa Spine and/or Hip INDICATIONS: LUNG NODULE, POST MENOPAUSAL TECHNIQUE: Dual energy x-ray absorptiometry (DXA) was performed on a Clutter System. Regions measur ed are the AP Spine, femoral neck, and if needed forearm. COMPARISON: 03/21/2020 FINDINGS: Lumbar Spine: Bone Mineral Density 1.310 g/cm/cm,T score 1.1. Normal Left Femoral Neck: Bone Mineral Density 1.154 g/cm/cm, T score 0.8. Left Hip: Bone Mineral Density 1.096 g/cm/cm,T score 0.7. Normal (T score greater or equal to -1.0: NORMAL) (T score from -1.1 to -2.4: OSTEOPENIA) (T score less than or equal to -2.5 to: OSTEOPOROSIS) Impression: By WHO criteria, this patient has normal bone mineral density. No significant interval change compare d to prior. Patients with diagnosis of osteoporosis or osteopenia should have regular bone mineral density assess ment. For those eligible for Medicare, routine testing is allowed once every 2 years. Testing frequ ency can be increased for patients who have rapidly progressing disease or for those who are receivin g medical therapy to restore bone mass. Reviewed by: Steven Finley on 06/12/2023 10:22 AM PDT Approved by: Steven Finley on 06/12/2023 10:22 AM PDT Station ID: [id number]
--- NOTE | 2023-06-12 15:10 | CT Report ---
PROCEDURE: CHEST WO INDICATIONS: LUNG NODULE, POST MENOPAUSAL TECHNIQUE: Noncontrast 1mm axial images were acquired from the pulmonary apices to the posterior costophrenic an gles. Axial 5 mm soft tissue kernel reconstructions were performed as well as 8 mm axial MIP and cor onal and sagittal 5 mm reformations. For radiation dose reduction, the following was used: automate d exposure control, adjustment of mA and/or kV according to patient size. COMPARISON: CT chest on September 17, 2022 FINDINGS: Image quality: Excellent. Lungs and pleura: Compared to CT chest dated September 17, 2022, no new or enlarging solid pulmonary no dules or consolidation. Stable left fissure triangular pulmonary lymph node measuring 3 x 5 mm (3/143 ). No pleural effusions. No pneumothorax. No suspicious pulmonary nodules which require follow up. Mediastinum: Heart size is normal. No pericardial effusion. Thoracic aorta and central pulmonary jackie bing are normal in size. No mediastinal adenopathy by size criteria. Mild ossification of the thorac ic aorta. No coronary vessel calcifications. Small hiatal hernia. Chest wall and lower neck: Thyroid is unremarkable. No axillary or supraclavicular adenopathy by size . Bones: No aggressive osseous abnormality. No acute fracture. No aggressive appearing lytic or blastic osseous lesion. Mild multilevel degenerative changes of the spine. Upper Abdomen: Limited noncontrast images of the upper abdomen demonstrate cholecystectomy. IMPRESSION: Compared to CT chest dated September 17, 2022, no new or enlarging solid pulmonary nodules or consolida tion. Stable left fissure triangular pulmonary lymph node measuring 3 x 5 mm. Lung RADS: 2, benign. Recommend repeat CT chest in 12 months. Reviewed by: Maggi Perez MD on 06/12/2023 3:09 PM PDT Approved by: Maggi Perez MD on 06/12/2023 3:09 PM PDT Station ID: [id number]
== END 2023-06-12 09:26 | disposition home or self-care (01) ==
LOC: DI 09:25
PROVIDERS: ATTEND Nurse Practitioner
DX: R91.1 Solitary pulmonary nodule (principal); F17.201 Nicotine dependence, unspecified, in remission; Z78.0 Asymptomatic menopausal state; R59.0 Localized enlarged lymph nodes

== ENCOUNTER 2023-07-16 08:08 | Outpatient (CLI) | payer MEDICARE, MEDICAID ==
[2023-07-16 15:38] LABS: CREATININE,URINE 72.4 mg/dL
[2023-07-16 15:47] LABS: ESTIMATED AVERAGE GLUCOSE 154 mg/dL (70-100)
[2023-07-16 15:50] LABS: MICROALBUMIN,URINE < 0.7 mg/dL
[2023-07-16 15:51] LABS: CALCIUM 9.7 mg/dL (8.5-10.3); CREATININE 0.7 mg/dL (0.6-1.3); POTASSIUM 4.7 mmol/L (3.5-4.5)
== END 2023-07-16 08:09 | disposition home or self-care (01) ==
LOC: LAB.S 08:08
PROVIDERS: ATTEND Nurse Practitioner
DX: E87.5 Hyperkalemia (principal); E11.9 Type 2 diabetes mellitus without complications
CPT/HCPCS: 36415; 80048; 82043; 82570; 83036

== ENCOUNTER 2023-11-13 08:34 | Outpatient (CLI) | payer MEDICARE, MEDICAID ==
[2023-11-13 14:45] LABS: BASOPHILS # (AUTO) 0.1 10^3/uL (0.0-0.1); BASOPHILS % (AUTO) 1.1 %; EOSINOPHILS # (AUTO) 0.3 10^3/uL (0.0-0.7); EOSINOPHILS % (AUTO) 2.8 %; HCT - HEMATOCRIT 40.4 % (37.0-47.0); LYMPHOCYTES # (AUTO) 3.4 10^3/uL (1.5-3.5); LYMPHOCYTES % (AUTO) 37.1 %; MEAN CORPUSCULAR HEMOGLOBIN 28.7 pg (27.0-31.0); MEAN CORPUSCULAR HGB CONC 29.7 g/dL (32.0-36.0); MEAN CORPUSCULAR VOLUME 96.7 fL (81.0-99.0); MEAN PLATELET VOLUME 9.3 fL (7.9-10.8); MONOCYTES # (AUTO) 0.6 10^3/uL (0.0-1.0); MONOCYTES % (AUTO) 6.2 %; NEUTROPHILS # (AUTO) 4.8 10^3/uL (1.5-6.6); NEUTROPHILS % (AUTO) 52.5 %; PLT - PLATELET COUNT 486 10^3/uL (130-450); RED BLOOD COUNT 4.18 10^6/uL (4.20-5.40); RED CELL DISTRIBUTION WIDTH 13.6 % (12.0-15.0); WHITE BLOOD COUNT 9.2 x10^3/uL (4.8-10.8)
[2023-11-13 14:56] LABS: % IRON SATURATION 17 % (20-50); ALBUMIN 4.3 g/dL (3.2-5.5); ALBUMIN/GLOBULIN RATIO 1.5 (1.0-2.2); ALKALINE PHOSPHATASE 82 IU/L (42-121); ALT ALANINE AMINOTRANSFERASE 27 IU/L (10-60); AST ASPARTATE AMINOTRANSFERASE 18 IU/L (10-42); BILIRUBIN,TOTAL 0.7 mg/dL (0.2-1.0); BUN - BLOOD UREA NITROGEN 16 mg/dL (6-20); CALCIUM 9.8 mg/dL (8.5-10.3); CARBON DIOXIDE - CO2 28 mmol/L (21-32); CHLORIDE 102 mmol/L (101-111); CHOL/HDL RATIO 4.1 (<4.4); CHOLESTEROL 190 mg/dL; CREATININE 0.7 mg/dL (0.6-1.3); GFR - MDRD 83 (>89); GLUCOSE 134 mg/dL (74-104); HDL CHOLESTEROL 46 mg/dL; IRON 66 ug/dL (50-212); LDL CHOLESTEROL,CALCULATED 96 mg/dL; LDL/HDL RATIO 2.1 (<4.4); POTASSIUM 4.9 mmol/L (3.5-4.5); SODIUM 137 mmol/L (135-145); TOTAL IRON BINDING CAPACITY 389 ug/dL (250-450); TOTAL PROTEIN 7.1 g/dL (6.4-8.9); TRANSFERRIN 278 mg/dL (203-362); TRIGLYCERIDES 239 mg/dL (48-352); VLDL CHOLESTEROL 48 mg/dL
[2023-11-13 15:07] LABS: THYROID STIMULATING HORMONE 1.49 uIU/mL (0.34-5.60)
[2023-11-13 15:11] LABS: FERRITIN 25.8 ng/mL (11.0-306.8)
[2023-11-13 20:44] LABS: ESTIMATED AVERAGE GLUCOSE 157 mg/dL (70-100); HEMOGLOBIN A1c% 7.1 % (4.27-6.07)
== END 2023-11-13 08:35 | disposition home or self-care (01) ==
LOC: LAB.S 08:34
PROVIDERS: ATTEND Nurse Practitioner
DX: I10 Essential (primary) hypertension (principal); E78.5 Hyperlipidemia, unspecified; R78.89 Finding of other specified substances, not normally found in blood; E66.9 Obesity, unspecified; E11.8 Type 2 diabetes mellitus with unspecified complications
CPT/HCPCS: 36415; 80053; 80061; 82728; 83036; 83540; 83721; 84443; 84466; 85025

== ENCOUNTER 2023-12-04 07:25 | Day surgery (SDC) | payer MEDICARE, MEDICAID ==
--- NOTE | 2023-12-04 07:04 | ANESTHESIA ---
Pre-Anesthesia VS, & Labs - Diagnosis R senile combined cataract - Procedure R extraction cataract w IOL Height: 5 ft 2 in - NPO >8 hours - Is Patient ?: Yes - Lab Results Lab results reviewed: No Home Medications and Allergies Home Medications: Ambulatory Orders Amlodipine Besylate/Valsartan [Amlodipine-Valsartan 5-160 mg] 1 tab PO DAILY 12/04/23 Pantoprazole [Protonix] 40 mg PO DAILY 12/04/23 Omeprazole [PriLOSEC] 1 tab PO DAILY 05/21/16 estradioL [Estradiol] 2 tab PO DAILY 05/21/16 Tizanidine HCl 4 mg PO QPM 10/29/18 lisinopriL [Lisinopril] 2.5 mg PO DAILY 10/29/18 metFORMIN [Glucophage] 500 mg PO BIDWM 01/24/21 Allergies/Adverse Reactions: Allergies Allergy/AdvReac Type Severity Reaction Status Date / Time tetanus and diphtheria Allergy Unknown Verified 12/04/23 07:46 toxoids nortriptyline AdvReac Severe suicidal Verified 12/04/23 07:46 pramipexole [From Mirapex] AdvReac Severe Nausea Verified 12/04/23 07:46 pregabalin [From Lyrica] AdvReac Severe Dizziness Verified 12/04/23 07:46 diltiazem AdvReac Intermediate insomina Verified 12/04/23 07:46 propranolol AdvReac Intermediate insomnia Verified 12/04/23 07:46 Anes History & Medical History - Anesthetic History Family history of Anesthesia Complications: Denies Family history of Malignant Hyperthermia: Denies - Medical History Cardiovascular: reports: Hypertension, High cholesterol Pulmonary: reports: None Gastrointestinal: reports: GERD Urinary: reports: None Neuro: reports: Peripheral neuropathy Musculoskeletal: reports: None Endocrine/Autoimmune: reports: Type 2 diabetes Skin: reports: None Smoking Status: Former smoker - Surgical History General: reports: Cholecystectomy Gynecologic: reports: Hysterectomy Orthopedic: reports: Spine surgery Exam General: Alert, Oriented x3, Cooperative Dental: WNL Mouth Openin Fingerbreadth Neck Mobility: Normal Mallampati classification: II Thyromental Distance: 4-6 cm Respiratory: Lungs clear, Normal breath sounds Cardiovascular: Regular rate Neurological: Normal speech Mental/Cognitive Status: Alert/Oriented X3, Normal for patient Cognitive Status: Within normal limits Plan Anesthesia Type: MAC Consent for Procedure(s) Verified and Reviewed: Yes Code Status: Attempt Resuscitation ASA classification: 2-Mild systemic disease Is this case an emergency?: No
[~2023-12-04 07:25] MED LIST changes: -CYCLOPENTOLATE 1% OPHTH DROPS 2 ML ONE; -KETOROLAC 0.45% OPHTH DROPS ONE; +MIDAZOLAM 2 MG/2 ML VIAL ONE; -PHENYLEPHRINE 2.5% OPHTH 2 ML DROPS ONE; -PROPARACAINE 0.5% OPHTH DROPS 15 ML ONE
[2023-12-04] MEDS: LACTATED RINGERS 1,000 ML IV ONE (07:37)
[2023-12-04] MEDS: PROPARACAINE 0.5% OPHTH DROPS 15 ML ONE (07:45)
[2023-12-04] MEDS: KETOROLAC 0.45% OPHTH DROPS ONE (07:46)
[2023-12-04] MEDS: PHENYLEPHRINE 2.5% OPHTH 2 ML DROPS ONE (07:47)
[2023-12-04] MEDS: CYCLOPENTOLATE 1% OPHTH DROPS 2 ML RIGHTEYE ONE (07:48)
[2023-12-04] MEDS ORDERED: BSS/LIDOCAINE/EPINEPHRINE 1 ML VIAL ONE (08:15)
[2023-12-04] MEDS ORDERED: BRIMONIDINE 0.2% OPHTH DROPS 5 ML ONE (08:15)
[2023-12-04] MEDS ORDERED: TIMOLOL 0.5% OPHTH DROPS ONE (08:15)
[2023-12-04] MEDS ORDERED: EPINEPHrine 1 MG/ML AMP ONE (08:15)
[2023-12-04] MEDS ORDERED: TRIAMCIN/MOXIFLOX OPHTHALMIC 0.6 ML VIAL IO ONE (08:15)
[2023-12-04] MEDS: EPINEPHrine 1 MG/ML AMP IR ONE (08:33)
[2023-12-04] MEDS: TIMOLOL 0.5% OPHTH DROPS OPTH ONE (08:33)
[2023-12-04] MEDS: BRIMONIDINE 0.2% OPHTH DROPS 5 ML OPTH ONE (08:33)
[2023-12-04] MEDS: BSS/LIDOCAINE/EPINEPHRINE 1 ML SYRINGE IO ONE (08:33)
[2023-12-04] MEDS: VANCOMYCIN OPHTH (TOPICAL) 10 MG/ML SYRINGE TOP ONE (08:34)
[2023-12-04] MEDS: TRIAMCIN/MOXIFLOX OPHTHALMIC 0.6 ML VIAL IO ONE (08:34)
[2023-12-04] MEDS: PROPARACAINE 0.5% OPHTH DROPS 15 ML EACHEYE ONE (08:34)
[2023-12-04] MEDS: LACTATED RINGERS 700 ML IV ONE ×2 (08:59→09:25)
--- NOTE | 2023-12-04 09:02 | OPERATIVE REPORT ---
Operative Report - Other Other Information/Narrative: Date of Surgery: 12/04/23 Preop Dx: Visually significant cataract right eye. Cataract surgery was performed in the left eye on . Postop Dx: Same Procedure: Phacoemulsification with posterior chamber intraocular lens implant right eye Surgeon: Dr. 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 Best corrected visual acuity was 20/40 with glare to light perception vision in the right eye. Indications for surgery were: - Overall decrease in vision - Difficulty seeing words on a computer screen - Difficulty reading - Difficulty seeing words, closed captions, or game scores on TV - Difficulty seeing street signs - Difficulty driving in low light or at night - Difficulty driving at night because of headlights from other vehicles - Difficulty with glare or bright lights in any situation The patient was consented at length concerning the risks and benefits of cataract surgery after which the patient expressed a desire to proceed with surgery. Operative Procedure: The patient was taken into OR#3 and placed under monitored anesthesia care. A surgical time-out was conducted confirming correct patient, correct procedure, and correct surgical site. The patient was given topical anesthesia and then prepped and draped in the usual sterile fashion. The eye was entered at the 6 and 3 oclock positions. Intracameral Shugarcaine was injected into the anterior chamber followed by a dispersive viscoelastic. A continuous-tear curvilinear capsulorhexis was performed. The nucleus was hydrodissected and phacoemulsified. The cortex was evacuated using automated infusion and aspiration. A cohesive viscoelastic was injected into the capsular bag and a 22.0 diopter intraocular lens was inserted into the bag. Infusion and aspiration were used to evacuate the viscoelastic materials from the eye. The wounds were hydrated and the eye inflated to physiologic pressure using balanced salt solution. Approximately 0.25ml of a mixture of triamcinolone and moxifloxacin was injected trans-sclerally into the vitreous in the inferotemporal quadrant using a 30 gauge cannula. An additional 0.25ml of a mixture of triamcinolone and moxifloxacin was injected subconjunctivally in the superior quadrant for infection and inflammation prophylaxis. Wound integrity was checked with Weck-Aleida sponges. The patient was taken from the operating room in good condition and given post-op instructions.
[2023-12-04 09:11] VITALS: O2SAT 100
[2023-12-04 09:21] VITALS: BP 145/64
--- NOTE | 2023-12-04 09:28 | ANESTHESIA POST OP EVALUATION ---
Anesthesia Post Eval - Post Anesthesia Eval Vitals: Last Vital Signs Temp 37 C 12/04/23 08:59 Pulse 81 12/04/23 09:12 Resp 16 12/04/23 09:12 BP 145/64 H 12/04/23 09:12 Pulse Ox 100 12/04/23 09:12 O2 Flow Rate CV Function Including HR & BP: Stable Pain Control: Satisfactory Nausea & Vomiting: Negative Mental Status: Baseline Respiratory Status: Airway Patent Hydration Status: Satisfactory Anesthesia Complications: None
== END 2023-12-04 07:26 | disposition home or self-care (01) ==
LOC: SDS 07:25
PROVIDERS: ATTEND Ophthalmology
DX: E11.36 Type 2 diabetes mellitus with diabetic cataract (principal); H25.811 Combined forms of age-related cataract, right eye; I10 Essential (primary) hypertension; Z79.84 Long term (current) use of oral hypoglycemic drugs
CPT/HCPCS: 66984; A9270; J3490; J7120

== ENCOUNTER 2024-05-06 08:18 | Outpatient (CLI) | payer MEDICARE, MEDICAID | END 2024-05-06 08:19 | disposition home or self-care (01) | LOC: DI 08:18 | PROVIDERS: ATTEND Nurse Practitioner | DX: R07.9 Chest pain, unspecified (principal); I34.0 Nonrheumatic mitral (valve) insufficiency | CPT/HCPCS: 93307 ==